=== PATIENT | male | born 1985 | race Caucasian/White ===

== ENCOUNTER 2020-12-04 02:19 | Emergency (ER) | payer MEDICAID ==
[~2020-12-04] VITALS: Ht 170.2 cm; Wt 74.8 kg
[2020-12-04 02:23] VITALS: BP 102/59
--- NOTE | 2020-12-04 02:23 | NUR ---
BRIDGETT TAKEN TO BED 3 VIA RMARYELLEN.
--- NOTE | 2020-12-04 02:23 | NUR ---
PATIENT FOUND ON FLOOR OUTSIDE OF [facility] IN [facility] BY MORENITA. PER REPORT FROM BACON DE RINDER PATIENT "DRANK A FEW DRINKS." PATIENT RESPONSIVE TO PAINFUL STIMULI, BUT PT. IS STILL LETHARGIC AND CLOSING EYES. SKIN IS PINK/WARM/DRY; HR EVEN AND REGULAR; VSS; PATIENT POSITIONED FOR COMFORT; HOB ELEVATED; BEDRAILS UP X2; BED DOWN. ER MD MADE AWARE OF PT STATUS.
--- NOTE | 2020-12-04 02:26 | NUR ---
ERMD AT BEDSIDE FOR MEDICAL EVALUATION.
[2020-12-04] MEDS ORDERED: ONDANSETRON 4 MG/2 ML VIAL IVP ONE (02:30)
[2020-12-04] MEDS ORDERED: NACL 0.9% 1,000 ML IV ONE ×2 (02:30→03:40)
[2020-12-04 03:01] LABS: BASOPHILS # (AUTO) 0.1 K/uL (0.00-0.22); BASOPHILS % (AUTO) 0.8 % (0.0-2.0); EOSINOPHILS # (AUTO) 0.2 K/uL (0-0.4); EOSINOPHILS % (AUTO) 2.3 % (0.0-4.0); HEMATOCRIT 40.6 % (36-52); HEMOGLOBIN 13.8 g/dL (12.0-18.0); LYMPHOCYTES # (AUTO) 2.3 K/uL (2.0-11.5); LYMPHOCYTES % (AUTO) 32.4 % (20.5-51.1); MEAN CORPUSCULAR HEMOGLOBIN 31 pg (27-31); MEAN CORPUSCULAR HGB CONC 34 g/dL (33-37); MEAN CORPUSCULAR VOLUME 92.4 fL (80-94); MONOCYTES # (AUTO) 0.5 K/uL (0.8-1.0); MONOCYTES % (AUTO) 6.3 % (1.7-9.3); NEUTROPHILS # (AUTO) 4.2 K/uL (1.8-7.7); NEUTROPHILS % (AUTO) 58.2 % (42.2-75.2); PLATELET COUNT (AUTO) 208 K/uL (140-450); RED BLOOD CELL COUNT(AUTO) 4.39 MIL/uL (4.20-6.10); RED CELL DISTRIBUTION WIDTH 12.8 % (11.6-13.7); WHITE BLOOD COUNT (AUTO) 7.1 K/uL (4.8-10.8)
[2020-12-04 03:21] LABS: BARBITURATE, URINE NEGATIVE ng/ml (NEG <=200); BENZODIAZEPINE, URINE NEGATIVE ng/mL (NEG <=200); CANNABINOID, URINE NEGATIVE ng/mL (NEG <=50); COCAINE, URINE NEGATIVE ng/mL (NEG <=300); OPIATE, URINE NEGATIVE ng/mL (NEG <=2000); PHENCYCLIDINE SCREEN,URINE NEGATIVE ng/mL (NEG <=25)
[2020-12-04 03:22] LABS: ALBUMIN 3.4 g/dL (3.4-5.0); ANION GAP 19.8 (8-16); ASPARTATE AMINOTRANSFERASE 16 U/L (15-37); CARBON DIOXIDE 19.7 mmol/L (21-32); CHLORIDE 108 mmol/L (98-107); CREATININE 0.8 mg/dL (0.6-1.3); GFR ARICAN-AMERICAN 141 mL/min (>90); GLUCOSE 99 mg/dL (74-106); POTASSIUM 3.5 mmol/L (3.5-5.1); SODIUM SERUM 144 mmol/L (136-145); TOTAL BILIRUBIN 0.9 mg/dL (0.0-1.0); UREA NITROGEN, BLOOD 14 mg/dL (7-18)
[2020-12-04 03:27] LABS: ACETAMINOPHEN < 0.5 ug/ml (10-30); SALICYLATE < 2.8 mg/dL (2.8-20.0)
--- NOTE | 2020-12-04 05:30 | NUR ---
PT. APPEARS TO BE DISORIENTED AND CONFUSED, TRYING TO LEAVE BED AND PULL IV LINE. PT. ALSO APPEARS TO BE INTOXICATED WITH ETOH. PT. IS UNCOOPERATIVE AFTER REORIENTING AND EDUCATING PATIENT. OBTAINED ORDER FOR SOFT RESTRAINTS PER VIOLETTA LARKIN.
--- NOTE | 2020-12-04 06:30 | NUR ---
RESTRAINTS D/C AT THIS TIME. PT. APPEARS TO BE CALM AND RESTING ON BED. ALL NEEDS MET.
--- NOTE | 2020-12-04 06:49 | NUR ---
PT. IS SEEN IN BRENNER POSITION WITH EYES CLOSED, RESTING COMFORTABLY. VOICES NO COMPLAINTS AT THIS TIME.
--- NOTE | 2020-12-04 07:15 | NUR ---
REPORT RECEIVED FROM ROBLES RN, TRANSFER OF CARE AT THIS TIME
--- NOTE | 2020-12-04 07:15 | NUR ---
GIVEN REPORT TO ANICETO WARD. TRANSFER OF CARE AT THIS TIME.
--- NOTE | 2020-12-04 09:28 | NUR ---
EKG completed at bedside.
--- NOTE | 2020-12-04 09:30 | NUR ---
PT RESTING WITH EYES CLOSED, BREATHING EVEN AND UNLABORED. NO DISTRESS NOTED.
--- NOTE | 2020-12-04 10:00 | NUR ---
PT ABLE TO AMBULATE WITH EVEN AND STEADY GAIT, ERMD MADE AWARE
[2020-12-04 10:10] VITALS: BP 108/46
--- NOTE | 2020-12-04 10:10 | NUR ---
Patient discharged with v/s stable. Written and verbal after care instructions about alcohol intoxication given and explained. Patient verbalized understanding. Ambulatory with steady gait. All questions addressed prior to discharge. Advised to follow up with PMD.
== END 2020-12-04 10:10 | disposition home or self-care (01) ==
LOC: EDSEX 02:19 → MED 02:19
DX: F10.129 Alcohol abuse with intoxication, unspecified (principal); R41.82 Altered mental status, unspecified
CPT/HCPCS: 36415; 70450; 80053; 80305; 85025; 93005; 96361; 96374; 99285; G0480; G0482; J2405; J7030